=== PATIENT | male | born 1970 | race Asian ===

== ENCOUNTER 2017-04-21 13:53 | Emergency (ER) | payer OTHER ==
[~2017-04-21] VITALS: Ht 167.6 cm; Wt 69.9 kg
[2017-04-21] MEDS ORDERED: MUCI600T34 PO (14:16)
[2017-04-21] MEDS ORDERED: IBUP-1114 PO (14:16)
[2017-04-21 15:52] LABS: BASO # 0.1 K/mm3 (0.0-0.2); BASO % 0.5 % (0.0-1.0); EOS # 0.2 K/mm3 (0.0-0.50); EOS % 1.9 % (0.0-3.0); LARGE UNSTAINED CELL # 0.3 K/mm3 (0.0-0.4); LYMPH # 2.5 K/mm3 (1.5-4.5); LYMPH % 18.8 % (24.0-44.0); MEAN CORPUSCULAR HEMOGLOBIN 30.4 pg (27.0-33.0); MEAN CORPUSCULAR HGB CONC 32.8 g/dl (32.0-36.5); MEAN CORPUSCULAR VOLUME 92.9 fl (80.0-96.0); MONO # 0.8 K/mm3 (0.0-0.8); MONO % 6.6 % (0.0-5.0); NEUTROPHILS # 8.5 K/mm3 (1.8-7.7); NEUTROPHILS % 70.1 % (36.0-66.0); PLATELET COUNT, AUTOMATED 351 k/mm3 (150-450); RED CELL DISTRIBUTION WIDTH 11.5 % (11.5-14.5); WHITE BLOOD COUNT 12.2 K/mm3 (4.0-10.0)
--- NOTE | 2017-04-21 16:09 | REP ---
CHEST, TWO VIEWS: HISTORY: Dyspnea. An area of density is present in the left upper lobe consistent with atelectasis or a scar. A minimal increase in interstitial markings is present in the perihilar areas. The heart is normal in size. The pulmonary vasculature is normal in appearance. The bony structure is intact. IMPRESSION: 1. Left upper lobe atelectasis or scar. 2. There is an increase in interstitial markings in the perihilar areas. This may represent asthma or bronchitis. Signed by Se Vicente MD 04/21/2017 04:15 P
[2017-04-21 16:17] LABS: ANION GAP 2 MEQ/L (8-16); BLOOD UREA NITROGEN 12 MG/DL (7-18); CALCIUM LEVEL 8.9 MG/DL (8.5-10.1); CARBON DIOXIDE LEVEL 33 MEQ/L (21-32); CHLORIDE LEVEL 105 MEQ/L (98-107); CREATININE FOR GFR 0.97 MG/DL (0.70-1.30); GLOMERULAR FILTRATION RATE > 60.0 (>60); GLUCOSE, FASTING 85 MG/DL (70-105); POTASSIUM SERUM 3.9 MEQ/L (3.5-5.1); SODIUM LEVEL 140 MEQ/L (136-145)
[2017-04-21] MEDS ORDERED: AZITHROMYCIN 250 MG TAB PO ONE (16:45)
[2017-04-21] MEDS ORDERED: AZIT250T3 PO (17:20)
[2017-04-21 17:33] VITALS: BP 120/69
--- NOTE | 2017-04-21 17:57 | REP ---
Chest CT without contrast: History: Perihilar densities. Question TB. Comparison is made with today's chest x-ray. CT findings: There is no evidence of pleural or pericardial effusion. There are patchy areas of bilateral infiltrates consistent with pneumonia. Perhaps a viral etiology. These are seen in areas of the lower lobes bilaterally and the upper lobes bilaterally. There is no evidence of bronchiectasis or endobronchial disease. No hilar or mediastinal mass or adenopathy is observed. No adrenal lesion is seen. Visualized upper abdominal structures are unremarkable. No bony destructive lesion is seen. No axillary or supraclavicular mass or adenopathy is observed. Impression: Patchy bilateral areas of infiltrate in the upper and lower lobes consistent with pneumonia, question viral etiology. Signed by Leinn Davis MD 04/24/2017 06:54 P
== END 2017-04-21 17:34 | disposition home or self-care (01) ==
LOC: M ED 17:15
DX: J18.9 Pneumonia, unspecified organism (principal); Z79.899 Other long term (current) drug therapy; Z88.6 Allergy status to analgesic agent; Z20.1 Contact with and (suspected) exposure to tuberculosis